=== PATIENT | female | born 1980 | race Caucasian/White ===

== ENCOUNTER 2016-12-19 13:00 | Emergency (ER) | payer BC, MEDICAID ==
[~2016-12-19] VITALS: Ht 152.4 cm; Wt 49.0 kg
[2016-12-19 13:29] VITALS: Ht 152.4 cm; Wt 49.0 kg
[2016-12-19 17:20] LABS: URINE BLOOD (Dip) POC Negative (NEGATIVE)
[2016-12-19 17:27] LABS: BASOPHIL # 0.1 10^3/ul (0.0-0.1); BASOPHILS % 0.7 % (0.0-2.0); EOSINOPHILS # 0.2 10^3/ul (0.0-0.5); HEMATOCRIT 40.6 % (37.0-47.0); HEMOGLOBIN 13.4 g/dl (12.0-16.0); LYMPHOCYTES # 2.2 10^3/ul (0.8-2.9); LYMPHOCYTES % 26.9 % (15.0-51.0); MEAN CORPUSCULAR HGB CONC 33.1 g/dl (32.0-37.0); MEAN CORPUSCULAR VOLUME 81.5 fl (82.0-101.0); MEAN PLATELET VOLUME 9.6 fl (7.4-10.4); MONOCYTE # 0.4 10^3/ul (0.3-0.9); MONOCYTES % 4.7 % (0.0-11.0); NEUTROPHIL # 5.3 10^3/ul (1.6-7.5); NEUTROPHILS % 65.7 % (39.0-77.0); PLATELET COUNT 258 10^3/UL (140-440); RED BLOOD COUNT 4.98 10^6/ul (4.20-5.40); RED CELL DISTRIBUTION WIDTH 14.4 % (11.5-14.5); UNCORRECTED WBC 8.1 10^3/ul (4.8-10.8); WHITE BLOOD COUNT 8.1 10^3/ul (4.8-10.8)
[2016-12-19 17:29] LABS: CONDITION 1; LH ANALYZER COMMENTS 1
[2016-12-19 17:36] LABS: ALBUMIN 4.6 g/dl (3.3-4.9); CHLORIDE 101 mmol/L (97-110)
[2016-12-19 17:37] LABS: POTASSIUM 4.2 mmol/L (3.5-5.1); SODIUM 141 mmol/L (135-144)
[2016-12-19 17:39] LABS: ALBUMIN/GLOBULIN RATIO 1.17; ANION GAP 15 (8-16); ASPARTATE AMINO TRANSFERASE 28 IU/L (15-46); BILIRUBIN,INDIRECT 0.5 mg/dl (0-1.1); BILIRUBIN,TOTAL 0.5 mg/dl (0.2-1.3); CARBON DIOXIDE 29 mmol/L (21-31); CREATININE 0.59 mg/dl (0.44-1.00); TOTAL PROTEIN 8.5 g/dl (6.1-8.1)
[2016-12-19 17:40] LABS: ALANINE AMINOTRANSFERASE 34 IU/L (13-69); ALKALINE PHOSPHATASE 61 IU/L (42-121); BLOOD UREA NITROGEN 15 mg/dl (7-20); CALCIUM 9.1 mg/dl (8.4-10.2); GLUCOSE 97 mg/dl (70-220)
--- NOTE | 2016-12-19 17:42 | RADRPT ---
PROCEDURE: XR Chest. CLINICAL INDICATION: Syncope TECHNIQUE: Single AP view of the chest were obtained COMPARISON: None FINDINGS: The heart and mediastinum are within normal limits. The pulmonary vasculature are unremarkable. The aorta is unremarkable. There is no lung consolidation, pleural effusion or pneumothorax. There i s no acute osseous abnormality. IMPRESSION: No acute disease. RPTAT: AA .Shivam Millan MD, Date Time Electronically viewed and signed by .Shivam Millan MD, MD on 12/19/2016 17:42 .J/
--- NOTE | 2016-12-19 17:52 | RADRPT ---
PROCEDURE: CT Brain without. CLINICAL INDICATION: Syncope. TECHNIQUE: A CT of the brain was performed on multidetector high-resolution CT scanner utilizing a xial sections from the skull base through the vertex without contrast. The scan was reviewed in sof t tissue brain and high frequency resolution bone algorithm windows. Images were reviewed on a high -resolution PACS workstation. One or more the following does reduction techniques were utilized: Aut omated exposure control, adjustment of themA/ or kV according to patient's size, or use of iterative reconstruction technique. The exam CTDI = 44.46 mGy and the DLP = 720.23 mGy-cm. COMPARISON: None available. FINDINGS: The ventricles and sulci are age-appropriate. There is no intracranial hemorrhage, mass effect or mi dline shift. No abnormal intra-axial or extra-axial fluid collections are seen. The esparza/white chandrakant er differentiation is preserved. No acute skull abnormality is noted. The visualized paranasal sinus es are essentially clear. IMPRESSION: 1. No acute intracranial hemorrhage, transcortical infarction or mass effect. RPTAT: HH .Carolyn Sevilla MD, MD Date Time Electronically viewed and signed by .Carolyn Sevilla MD, MD on 12/19/2016 17:51 .N/
[2016-12-19 17:57] LABS: TROPONIN-I < 0.012 ng/ml (0.00-0.12)
--- NOTE | 2016-12-19 18:23 | ERD ---
ER Documentation Chief Complaint Date/Time DATE: 12/19/16 TIME: 18:19 Chief Complaint PT fell today this morning, ko for 3 minutes, HANDY, L arm numbing. HPI This is a 36-year-old female presenting to the emergency room complaining of syncope that occurred this morning. Patient states that she felt dizzy with nausea and then she fainted for 3 minutes. Patient states that she had a headache rating it 3 out of 10. She also states that she had left arm numbing. She denies any palpitations, vomiting, lethargy, seizures, abdominal pain, shortness of breath. She states that she did have chest pain however denies that currently ROS All systems reviewed and are negative except as per history of present illness. Allergies Allergies: Coded Allergies: albuterol (Verified Allergy, Unknown, RASH, 09/02/14) PMhx/Soc Medical and Surgical Hx: pt denies Medical Hx, pt denies Surgical Hx Hx Alcohol Use: No Hx Substance Use: No Hx Tobacco Use: No Physical Exam Vitals Vital Signs Date Time Temp Pulse Resp B/P Pulse Ox O2 Delivery O2 Flow Rate FiO2 12/19/16 13:29 98.1 63 20 129/62 100 Physical Exam GENERAL: well-developed/well-nourished, in no apparent distress, non-toxic appearing HENT: NC/AT, bilateral tympanic membrane is normal with good cone of light, nares patent, oropharynx clear without exudates EYES: Conjunctiva normal, PERRLA, EOMI, no nystagmus noted NECK: Supple, no lymphadenopathy PULM: CTA bilaterally, no rales, rhonchi, or wheezing heard CV: Normal S1S2, RRR, good capillary refill GI: Soft, non-distended, normal bowel sounds, non-tender BACK: No midline tenderness, no masses, No CVAT EXT: No clubbing, cyanosis, or edema NEURO: Alert and orientated to person, place, and time. CN II-IIX intact. Gait and coordination were normal. Hand unit technician strength were equal and within normal limits SKIN: Intact, normal turgor PSYCH: Normal mood and mentation, patient denied SI Result Diagram: 12/19/16 1715 12/19/16 1715 Results 24 hrs Laboratory Tests Test 12/19/16 17:15 12/19/16 17:20 Alanine Aminotransferase (ALT/SGPT) 34IU/L Albumin 4.6g/dl Albumin/Globulin Ratio 1.17 Alkaline Phosphatase 61IU/L Anion Gap 15 Aspartate Amino Transf (AST/SGOT) 28IU/L Basophils # 0.110^3/ul Basophils % 0.7% Blood Morphology Comment Blood Urea Nitrogen 15mg/dl Calcium Level 9.1mg/dl Carbon Dioxide Level 29mmol/L Chloride Level 101mmol/L Creatinine 0.59mg/dl Direct Bilirubin 0.00mg/dl Eosinophils # 0.210^3/ul Eosinophils % 2.0% Globulin 3.90g/dl Glucose Level 97mg/dl Hematocrit 40.6% Hemoglobin 13.4g/dl Indirect Bilirubin 0.5mg/dl Lipase 219U/L Lymphocytes # 2.210^3/ul Lymphocytes % 26.9% Mean Corpuscular Hemoglobin 27.0pg Mean Corpuscular Hemoglobin Concent 33.1g/dl Mean Corpuscular Volume 81.5fl Mean Platelet Volume 9.6fl Monocytes # 0.410^3/ul Monocytes % 4.7% Neutrophils # 5.310^3/ul Neutrophils % 65.7% Nucleated Red Blood Cells # 0.010^3/ul Nucleated Red Blood Cells % 0.0/100WBC Platelet Count 78911^3/UL Potassium Level 4.2mmol/L Red Blood Count 4.9810^6/ul Red Cell Distribution Width 14.4% Sodium Level 141mmol/L Total Bilirubin 0.5mg/dl Total Protein 8.5g/dl Troponin I < 0.012ng/ml White Blood Count 8.110^3/ul Bedside Urine Blood Negative Bedside Urine Glucose (UA) Negative Bedside Urine Ketones (LAB) Negative Bedside Urine Leukocyte Esterase (L Trace Bedside Urine Nitrite (LAB) Negative Bedside Urine Protein (LAB) Negative Bedside Urine pH (LAB) 7.0 Procedures/MDM This is a 36-year-old female presenting to the emergency department complaining of a syncopal episode that occurred 3 minutes this morning. Patient complains of a mild headache with resolved chest pain shortness of breath, and left arm paresthesia. On examination patient had a normal neurological exam. She was speaking very clearly and ambulating well. She was eating well. She does not appear toxic. A full syncopal workup was done in the ED. CT of the head without contrast was done and did not show any evidence of mass, intracranial shift or fractures. EKG was done in the ED and was unremarkable for STEMI. Lab work was drawn. CBC did not show any evidence of leukocytosis or anemia. CMP did not show any evidence of renal, liver, or electrolyte abnormalities. Lipase was normal. UA did not show any evidence of hemoglobin or urinary tract infection. I have reassessed patient and she is doing very well, I have discussed the patient should follow-up with her primary care physician as soon as possible today or tomorrow. Patient states that she will be able to. I discussed return to the ER for any worsening signs or symptoms. She understands and agrees with this plan. Patient's syncopal symptoms have stabilized while in the department and are suitable for outpatient follow up. Exam and work up not consistent w/ ischemia, arrhythmia, stroke, PE or dissection. SF Syncope rule: Defines high-risk criteria for patients with syncope CHF history Hct <30% Abnormal EKK (or any new EKG changes) SOB Systolic BP <90 mmHg at triage EKG: read and signed off by myself and Dr. Duckworth Rate/Rhythm: 55bpm normal sinus rhythm QRS, ST, T-waves: No changes consistent w/ acute ischemia Impression: No evidence of ischemia or arrhythmia Departure Diagnosis: Primary Impression: Syncope Syncope type: unspecified Qualified Code: R55 - Syncope, unspecified syncope type Additional Impression: Paresthesia Condition: Stable Patient Instructions: What Is Syncope?, Causes of Syncope, Chest Pain, Noncardiac , Chest Pain, Uncertain Cause, Syncope, Unk Cause, Paraesthesias Additional Instructions: Visite a aubrie patel para un EXAMEN.Regrese a estas instalaciones si no se mejora alex esperbamos o alex le dijimos. Regrese a estas instalaciones si no se mejora alex esperbamos o alex le dijimos. ISIDRO PATEL PA-C Dec 19, 2016 18:23
[2016-12-19 18:42] LABS: ADD UMIC YES; URINE BILIRUBIN (Dip) NEGATIVE (NEGATIVE); URINE BLOOD (Dip) NEGATIVE (NEGATIVE); URINE COLOR LT. YELLOW (YELLOW); URINE GLUCOSE (Dip) NEGATIVE (NEGATIVE); URINE KETONES (Dip) NEGATIVE (NEGATIVE); URINE LEUKOCYTE ESTERASE (Dip) 1+ (NEGATIVE); URINE NITRITE (Dip) NEGATIVE (NEGATIVE); URINE TOTAL PROTEIN (Dip) NEGATIVE (NEGATIVE); URINE UROBILINOGEN (Dip) 0.2 E.U./dL (0.1-1.0)
[2016-12-19 18:50] VITALS: PULSE 66; TEMP 98.1
[2016-12-19 18:52] VITALS: BP 102/57; RESP 18
[2016-12-19 19:15] LABS: SQUAMOUS EPITHELIAL CELL,UR RARE; URINE RBCS NONE SEEN /HPF (0)
== END 2016-12-19 18:52 | disposition home or self-care (01) ==
LOC: FTE 13:00
DX: R55 Syncope and collapse (principal); R20.2 Paresthesia of skin
CPT/HCPCS: 70450; 71010; 80053; 81001; 81003; 83690; 84484; 85025; 93005